=== PATIENT | male | born 1985 | race Caucasian/White ===

== ENCOUNTER 2017-05-30 10:02 | Emergency (ER) | payer SELFPAY ==
[~2017-05-30] VITALS: Ht 188 cm; Wt 108.9 kg
[2017-05-30 10:25] VITALS: BP 149/93
[2017-05-30] MEDS ORDERED: LIDOCAINE 1% HCL (LOCAL ANESTH.) INJ 20ML MDV IN ONE (10:30)
[2017-05-30] MEDS ORDERED: TETANUS-DIPTH-ACEL PERTUSSIS 0.5ML SYRG IM ONE (10:30)
[2017-05-30] MEDS ORDERED: BACITRACIN TOP OINT 1 UD PKG TOP ONE (11:00)
== END 2017-05-30 11:13 | disposition home or self-care (01) ==
LOC: ER 10:02
DX: S51.812A Laceration without foreign body of left forearm, initial encounter (principal); W54.0XXA Bitten by dog, initial encounter; Y93.89 Activity, other specified; Y92.89 Other specified places as the place of occurrence of the external cause; Y99.8 Other external cause status; Z23 Encounter for immunization
CPT/HCPCS: 12002; 90471; 90715; 99283; J2001